=== PATIENT | female | born 1965 | race Caucasian/White ===

== ENCOUNTER → 2024-03-25 | Outpatient (CLI) | payer OTHER | END | disposition home or self-care (01) | LOC: LAB SHORT 07:37 → LAB 07:37 | DX: M86.271 Subacute osteomyelitis, right ankle and foot (principal); L97.514 Non-pressure chronic ulcer of other part of right foot with necrosis of bone | CPT/HCPCS: 88305 ==

== ENCOUNTER → 2024-03-25 | Outpatient (CLI) | payer OTHER | END | disposition home or self-care (01) | LOC: LAB 17:34 → LAB SHORT 17:34 | DX: L97.514 Non-pressure chronic ulcer of other part of right foot with necrosis of bone (principal); L03.031 Cellulitis of right toe; M86.271 Subacute osteomyelitis, right ankle and foot | CPT/HCPCS: 87070; 87147; 87205 ==